=== PATIENT | female | born 1990 | race Caucasian/White ===

== ENCOUNTER 2024-02-05 16:17 | Emergency (ER) | payer MEDICAID ==
[~2024-02-05] VITALS: Ht 157.4 cm; Wt 122.5 kg
[2024-02-05] MEDS ORDERED: Doxycycline Hyclate 100 MG CAP PO ONE ×2 (18:25→18:30)
[2024-02-05] MEDS ORDERED: VIBRAMYCIN100 MG PO (18:39)
== END 2024-02-05 18:48 | disposition home or self-care (01) ==
LOC: ED 16:17
DX: J18.9 Pneumonia, unspecified organism (principal)

== ENCOUNTER 2024-09-01 10:25 | Emergency (ER) | payer MEDICAID ==
[~2024-09-01] VITALS: Wt 117.9 kg
[~2024-09-01 10:25] MED LIST: VIBRAMYCIN100 MG PO
[2024-09-01] MEDS ORDERED: Acetaminophen/Hydrocodone 5 MG/325 MG TABLET PO ONE (12:20)
[2024-09-01] MEDS ORDERED: HYDROCODONE-AC1 EACH PO (13:46)
== END 2024-09-01 13:55 | disposition home or self-care (01) ==
LOC: ED 10:25
DX: S32.000A Wedge compression fracture of unspecified lumbar vertebra, initial encounter for closed fracture (principal); Z79.899 Other long term (current) drug therapy; W18.39XA Other fall on same level, initial encounter; Y93.89 Activity, other specified; Y92.89 Other specified places as the place of occurrence of the external cause; Y99.8 Other external cause status

== ENCOUNTER 2024-12-08 14:32 | Emergency (ER) | payer MEDICAID ==
[~2024-12-08] VITALS: Ht 160 cm; Wt 142.4 kg
[~2024-12-08 14:32] MED LIST changes: +HYDROCODONE-AC1 EACH PO
[2024-12-08 16:07] LABS: BASO # 0.1 10*3/uL (0.0-0.1); BASO % 0.4 % (0.0-1.0); EOS # 0.2 10*3/uL (0.0-0.4); EOS % 1.5 % (1.0-4.0); MEAN CELL VOLUME 90.3 fl (81.0-99.0); MEAN CORPUSCULAR HGB 29.0 pg (27.0-31.0); MEAN PLATELET VOLUME 9.0 fl (9.6-12.3); MONO # 1.0 10*3/uL (0.1-1.0); MONO % 7.5 % (3.0-9.0); NEUT # 10.2 10*3/uL (2.3-7.9); NEUT % 74.8 % (47.0-73.0); NUCLEATED RED BLOOD CELL 0.0 % (0.0-0.0); NUCLEATED RED BLOOD CELL 0.0 10*3/uL (0.0-0.0); PLATELET COUNT AUTOMATED 365 10*3/uL (130-400); RED CELL DISTRI WIDTH 13.4 % (0-14.5)
[2024-12-08 16:27] LABS: BUN 18 mg/dl (9-23)
[2024-12-08 17:36] LABS: BILIRUBIN Negative (Negative); BLOOD Negative (Negative); CLARITY Clear (Clear); COLOR Yellow (Yellow); KETONE Trace (Negative); LEUKO ESTERASE Negative (Negative); NITRITE Negative (Negative); PH 5.5 (4.5-8.0); SPECIFIC GRAVITY >= 1.030 (1.001-1.030); UROBILINOGEN 1.0 E.U./dl (0.0-1.0)
[2024-12-08 17:43] LABS: MUCOUS 3+
== END 2024-12-08 18:14 | disposition home or self-care (01) ==
LOC: ED 14:32
PROVIDERS: Emergency Medicine
DX: R53.83 Other fatigue (principal); R23.2 Flushing; H53.8 Other visual disturbances; R51.9 Headache, unspecified; E66.01 Morbid (severe) obesity due to excess calories; F17.200 Nicotine dependence, unspecified, uncomplicated; Z79.899 Other long term (current) drug therapy; Z68.43 Body mass index [BMI] 50.0-59.9, adult